=== PATIENT | male | born 1970 | race Two or more races ===

== ENCOUNTER 2021-09-23 12:25 | Inpatient (IN) | payer SELFPAY ==
[~2021-09-23] VITALS: Ht 172.7 cm; Wt 110.6 kg
[2021-09-23] MEDS ORDERED: NITROGLYCERIN 0.4 MG SL TAB SL ONE (12:45)
[2021-09-23] MEDS ORDERED: ASPirin 81 mg TAB PO ONE (12:45)
[2021-09-23 13:20] LABS: Basophils # (auto) 0.1 10 ^3/uL (0-0.2); Basophils % (auto) 0.9 % (0.0-2.0); Eosinophils # (auto) 0.1 10 ^3/uL (0-0.8); Eosinophils % (auto) 0.7 % (0.0-7.0); Lymphocytes # (auto) 2.4 10 ^3/uL (0.4-5.4); Lymphocytes % (auto) 22.2 % (10.0-50.0); Mean Corpuscular Hemoglobin 31.9 pg (28.0-32.0); Mean Corpuscular Hgb Conc. 35.3 g/dL (32.0-36.0); Mean Corpuscular Volume 90.5 fL (80.0-100.0); Monocytes % (auto) 9.4 % (0.0-12.0); Neutrophils # (auto) 7.2 10 ^3/uL (1.6-8.6); Neutrophils % (auto) 66.8 % (37.0-80.0); Nucleated Red Blood Cells % 0.1 %; Red Blood Cells 5.31 10^6/uL (4.5-5.90); Red Cell Distribution Width 12.8 % (11.8-14.3); White Blood Cell 10.7 10^3/uL (4.4-10.8)
[2021-09-23 14:44] LABS: Albumin 3.9 g/dL (3.4-5.0); Calcium 9.1 mg/dL (8.5-10.1); Potassium 3.8 mmol/L (3.5-5.1)
[2021-09-23 14:46] LABS: BUN/Creatinine Ratio 12.7
[2021-09-23 14:47] LABS: Bilirubin, Total 0.9 mg/dL (0.2-1.0); Total Protein 7.6 g/dL (6.4-8.2)
[2021-09-23] MEDS: SODIUM CHLORIDE 0.9% 1,000 ML IV SCH (16:30)
[2021-09-23] MEDS ORDERED: hydrALAZINE HCL 20 MG/ML VL IV PRN (16:30)
[2021-09-23] MEDS ORDERED: MORPHINE SULFATE INJECTION 2 MG/ML SYRG IV PRN ×3 (16:30)
[2021-09-23] MEDS ORDERED: ATORVASTATIN 20 MG TAB PO ONE (16:30)
[2021-09-23] MEDS ORDERED: METOPROLOL SUCCINATE XL 50 MG TAB PO ONE (16:30)
[2021-09-23] MEDS ORDERED: ALUM & MAG HYDROX-SIMETH LIQ(MAALOX) 30 ML PO PRN (16:30)
[2021-09-23] MEDS ORDERED: LORazepam 0.5 MG TAB PO PRN (16:30)
[2021-09-23] MEDS ORDERED: ACETAMINOPHEN 325 MG TAB PO PRN (16:30)
[2021-09-23] MEDS ORDERED: ONDANSETRON HCL 4 MG/2 ML VIAL IV PRN (16:30)
[2021-09-23] MEDS ORDERED: DOCUSATE SOD 100 MG CAP PO PRN (16:30)
[2021-09-23] MEDS ORDERED: NITROGLYCERIN 0.4 MG SL TAB SL PRN ×2 (16:30)
[2021-09-23] MEDS ORDERED: BENAZEPRIL HCL 10 MG TAB PO ONE (16:30)
[2021-09-23] MEDS ORDERED: HYDROcodone-ACET 5/325MG TAB PO PRN (16:30)
[2021-09-23] MEDS ORDERED: FAMOTIDINE (10MG/ML) 2ML VL IV ONE (16:30)
[2021-09-23 18:57] LABS: Amphetamine Screen, Urine NEGATIVE (NEGATIVE); Barbiturate Scree,Urine NEGATIVE (NEGATIVE); Benzodiazephine Screen, Urine NEGATIVE (NEGATIVE); Cannabinoid Screen, Urine NEGATIVE (NEGATIVE); Cocaine Screen, Urine NEGATIVE (NEGATIVE); Opiate Scree,Urine NEGATIVE (NEGATIVE); Phencyclidine Screen, Urine NEGATIVE (NEGATIVE)
[2021-09-23 19:02] LABS: Urine Bacteria NONE SEEN /hpf (None Seen); Urine Blood 3+ /uL (Negative); Urine Mucus FEW (None Seen); Urine Specific Gravity 1.036 (1.001-1.035); Urine WBC 1 /hpf (0 - 3)
[2021-09-23] MEDS ORDERED: ENOXAPARIN SOD 100 MG/1 ML SYRINGE SC ONE (20:00)
[2021-09-23] MEDS: ENOXAPARIN SOD 100 MG/1 ML SYRINGE SC SCH (21:06)
[2021-09-23] MEDS: FAMOTIDINE (10MG/ML) 2ML VL IV SCH (22:43)
[2021-09-24 05:03] LABS: Basophils # (auto) 0.1 10 ^3/uL (0-0.2); Eosinophils # (auto) 0.1 10 ^3/uL (0-0.8); Eosinophils % (auto) 0.7 % (0.0-7.0); Hematocrit 42.3 % (41.0-53.0); Hemoglobin 14.7 g/dL (13.5-17.5); Lymphocytes # (auto) 3.4 10 ^3/uL (0.4-5.4); Lymphocytes % (auto) 29.4 % (10.0-50.0); Mean Corpuscular Hemoglobin 31.5 pg (28.0-32.0); Mean Corpuscular Hgb Conc. 34.8 g/dL (32.0-36.0); Mean Corpuscular Volume 90.5 fL (80.0-100.0); Monocytes # (auto) 1.4 10 ^3/uL (0-1.3); Monocytes % (auto) 12.6 % (0.0-12.0); Neutrophils # (auto) 6.4 10 ^3/uL (1.6-8.6); Neutrophils % (auto) 56.3 % (37.0-80.0); Nucleated Red Blood Cells % 0.3 %; Red Blood Cells 4.67 10^6/uL (4.5-5.90); Red Cell Distribution Width 12.9 % (11.8-14.3); White Blood Cell 11.4 10^3/uL (4.4-10.8)
[2021-09-24 05:26] LABS: Albumin 3.1 g/dL (3.4-5.0); Calcium 8.3 mg/dL (8.5-10.1); INR 1.07 (0.9-1.15); Magnesium 2.1 mg/dL (1.6-2.6); Partial Thromboplastin Time 29.7 sec (23.6-33.0); Potassium 3.2 mmol/L (3.5-5.1); Uric Acid 6.9 mg/dL (3.5-7.2)
[2021-09-24 05:30] LABS: BUN/Creatinine Ratio 17.9; Bilirubin, Total 1.1 mg/dL (0.2-1.0); Phosphorus 3.2 mg/dL (2.5-4.90); Total Protein 6.3 g/dL (6.4-8.2)
[2021-09-24] MEDS: ENOXAPARIN SOD 100 MG/1 ML SYRINGE SC SCH ×2 (07:58→19:37)
[2021-09-24] MEDS: METOPROLOL SUCCINATE XL 50 MG TAB PO SCH (08:59)
[2021-09-24] MEDS: ASPirin 81 mg TAB PO SCH (08:59)
[2021-09-24] MEDS: FAMOTIDINE (10MG/ML) 2ML VL IV SCH ×2 (08:59→21:03)
[2021-09-24] MEDS: BENAZEPRIL HCL 10 MG TAB PO SCH (08:59)
[2021-09-24] MEDS: SODIUM CHLORIDE 0.9% 1,000 ML IV SCH (09:28)
[2021-09-24] MEDS ORDERED: CHOLECALCIFEROL (VITD3) 2,000 UNIT CAP/TAB PO ONE (11:45)
[2021-09-24] MEDS ORDERED: POTASSIUM CHLORIDE 40 MEQ, LIDOCAINE 1% (LOCAL ANESTH.) 4 ML in SODIUM CHL 0.9% 250 ML IV ONE (11:45)
[2021-09-24] MEDS ORDERED: LORazepam 2MG/ML-1ML VIAL IV PRN (11:45)
[2021-09-24] MEDS ORDERED: THIAMINE 100mg/ml INJ (200mg/2ml VIAL) IV ONE (12:15)
[2021-09-24] MEDS ORDERED: FOLIC ACID 1 MG TAB PO ONE (12:15)
[2021-09-24] MEDS ORDERED: MULTIPLE VITAMINS W/ MINERALS TAB PO ONE (12:15)
[2021-09-24 17:00] VITALS: BP 125/82
[2021-09-24] MEDS: POTASSIUM CHL 20 Meq TABLET PO SCH (21:04)
[2021-09-24] MEDS: ATORVASTATIN 20 MG TAB PO SCH (21:04)
[2021-09-24 23:35] VITALS: BP 123/70
[2021-09-25] MEDS: SODIUM CHLORIDE 0.9% 1,000 ML IV SCH ×2 (04:21→23:22)
[2021-09-25 05:20] LABS: Basophils # (auto) 0.1 10 ^3/uL (0-0.2); Basophils % (auto) 1.2 % (0.0-2.0); Eosinophils # (auto) 0.1 10 ^3/uL (0-0.8); Eosinophils % (auto) 0.8 % (0.0-7.0); Hemoglobin 14.8 g/dL (13.5-17.5); Lymphocytes # (auto) 2.5 10 ^3/uL (0.4-5.4); Lymphocytes % (auto) 20.2 % (10.0-50.0); Mean Corpuscular Hgb Conc. 35.2 g/dL (32.0-36.0); Mean Corpuscular Volume 90.7 fL (80.0-100.0); Monocytes # (auto) 1.4 10 ^3/uL (0-1.3); Monocytes % (auto) 11.6 % (0.0-12.0); Neutrophils # (auto) 8.2 10 ^3/uL (1.6-8.6); Neutrophils % (auto) 66.2 % (37.0-80.0); Nucleated Red Blood Cells % 0.1 %; Red Blood Cells 4.63 10^6/uL (4.5-5.90); Red Cell Distribution Width 13.1 % (11.8-14.3); White Blood Cell 12.5 10^3/uL (4.4-10.8)
[2021-09-25 05:25] VITALS: BP 149/86
[2021-09-25 05:35] LABS: INR 1.05 (0.9-1.15); Partial Thromboplastin Time 28.3 sec (23.6-33.0)
[2021-09-25] MEDS: ENOXAPARIN SOD 100 MG/1 ML SYRINGE SC SCH ×2 (07:58→19:30)
[2021-09-25 08:46] VITALS: BP 169/87
[2021-09-25 09:08] LABS: Albumin 3.2 g/dL (3.4-5.0); Calcium 8.2 mg/dL (8.5-10.1); Magnesium 2.7 mg/dL (1.6-2.6); Potassium 4.2 mmol/L (3.5-5.1)
[2021-09-25 09:11] LABS: BUN/Creatinine Ratio 15.8; Bilirubin, Total 1.1 mg/dL (0.2-1.0); Phosphorus 2.8 mg/dL (2.5-4.90); Total Protein 6.3 g/dL (6.4-8.2)
[2021-09-25] MEDS: ASPirin 81 mg TAB PO SCH (10:26)
[2021-09-25] MEDS: FAMOTIDINE (10MG/ML) 2ML VL IV SCH ×2 (10:26→22:12)
[2021-09-25] MEDS: FOLIC ACID 1 MG TAB PO SCH (10:27)
[2021-09-25] MEDS: THIAMINE HCL 100 MG TAB PO SCH (10:27)
[2021-09-25] MEDS: MULTIPLE VITAMINS W/ MINERALS TAB PO SCH (10:27)
[2021-09-25] MEDS: POTASSIUM CHL 20 Meq TABLET PO SCH ×2 (10:27→22:13)
[2021-09-25] MEDS: METOPROLOL SUCCINATE XL 50 MG TAB PO SCH (10:28)
[2021-09-25] MEDS: BENAZEPRIL HCL 10 MG TAB PO SCH (10:28)
[2021-09-25] MEDS: CHOLECALCIFEROL (VITD3) 2,000 UNIT CAP/TAB PO SCH (10:29)
[2021-09-25 12:30] VITALS: BP 141/74
[2021-09-25 17:03] VITALS: BP 144/81
[2021-09-25] MEDS: ATORVASTATIN 20 MG TAB PO SCH (21:20)
[2021-09-25 22:00] VITALS: BP 145/78
[2021-09-26 05:59] VITALS: BP 112/85
[2021-09-26 07:56] LABS: Potassium 4.2 mmol/L (3.5-5.1)
[2021-09-26 07:57] LABS: Basophils # (auto) 0.1 10 ^3/uL (0-0.2); Basophils % (auto) 0.5 % (0.0-2.0); Eosinophils # (auto) 0 10 ^3/uL (0-0.8); Eosinophils % (auto) 0.1 % (0.0-7.0); Hematocrit 42.9 % (41.0-53.0); Lymphocytes # (auto) 2.2 10 ^3/uL (0.4-5.4); Lymphocytes % (auto) 12.4 % (10.0-50.0); Mean Corpuscular Hemoglobin 32.5 pg (28.0-32.0); Mean Corpuscular Volume 92.8 fL (80.0-100.0); Monocytes # (auto) 1.4 10 ^3/uL (0-1.3); Monocytes % (auto) 8.1 % (0.0-12.0); Neutrophils # (auto) 13.9 10 ^3/uL (1.6-8.6); Neutrophils % (auto) 78.9 % (37.0-80.0); Red Blood Cells 4.62 10^6/uL (4.5-5.90); Red Cell Distribution Width 12.9 % (11.8-14.3); White Blood Cell 17.6 10^3/uL (4.4-10.8)
[2021-09-26 08:07] LABS: INR 1.16 (0.9-1.15)
[2021-09-26 08:10] LABS: Albumin 2.9 g/dL (3.4-5.0); BUN/Creatinine Ratio 15.3; Calcium 8.3 mg/dL (8.5-10.1)
[2021-09-26 08:15] LABS: Bilirubin, Total 1.6 mg/dL (0.2-1.0); Phosphorus 3.7 mg/dL (2.5-4.90); Total Protein 5.8 g/dL (6.4-8.2)
[2021-09-26 09:00] VITALS: BP 152/80
[2021-09-26] MEDS: FAMOTIDINE (10MG/ML) 2ML VL IV SCH (10:01)
[2021-09-26] MEDS: THIAMINE HCL 100 MG TAB PO SCH (10:01)
[2021-09-26] MEDS: FOLIC ACID 1 MG TAB PO SCH (10:01)
[2021-09-26] MEDS: ASPirin 81 mg TAB PO SCH (10:01)
[2021-09-26] MEDS: MULTIPLE VITAMINS W/ MINERALS TAB PO SCH (10:02)
[2021-09-26] MEDS: CHOLECALCIFEROL (VITD3) 2,000 UNIT CAP/TAB PO SCH (10:02)
[2021-09-26] MEDS: BENAZEPRIL HCL 10 MG TAB PO SCH (10:02)
[2021-09-26] MEDS: METOPROLOL SUCCINATE XL 50 MG TAB PO SCH (10:03)
[2021-09-26 13:00] VITALS: BP 134/81
[2021-09-26] MEDS ORDERED: ENOXAPARIN SOD 100 MG/1 ML SYRINGE SC ONE (13:30)
[2021-09-26 14:58] LABS: Hepatitis A Ab IgM Negative
[2021-09-26 15:10] LABS: Hepatitis B Core IgM Negative
[2021-09-26 15:14] LABS: Hepatitis C Antibody Negative (Negative)
[2021-09-26 15:38] LABS: Cholesterol 121 mg/dL (< 200); HDL Cholesterol 30 mg/dL (40-59); Triglycerides 120 mg/dL (< 150)
[2021-09-26 15:39] LABS: CRP High Sensitivity > 0.950 mg/dL (< 0.3); LDL Cholesterol 75 mg/dL (< 100)
[2021-09-26] MEDS ORDERED: ENOXAPARIN SOD 100 MG/1 ML SYRINGE SC SCH (22:00)
== END 2021-09-26 13:20 | disposition left against medical advice (07) | DRG 280 ==
LOC: ER 12:25 → TELE 16:23 → TELE-WESTW 09-24 16:46
PROVIDERS: ADMIT Hospitalist; ATTEND Internal Medicine
DX: I21.4 Non-ST elevation (NSTEMI) myocardial infarction (principal); I50.33 Acute on chronic diastolic (congestive) heart failure; R65.10 Systemic inflammatory response syndrome (SIRS) of non-infectious origin without acute organ dysfunction; I16.0 Hypertensive urgency; E66.01 Morbid (severe) obesity due to excess calories; K21.9 Gastro-esophageal reflux disease without esophagitis; K29.70 Gastritis, unspecified, without bleeding; D72.829 Elevated white blood cell count, unspecified; E87.6 Hypokalemia; E55.9 Vitamin D deficiency, unspecified; E78.5 Hyperlipidemia, unspecified; I11.0 Hypertensive heart disease with heart failure; K70.9 Alcoholic liver disease, unspecified; R79.89 Other specified abnormal findings of blood chemistry; Z20.822 Contact with and (suspected) exposure to COVID-19; R74.01 Elevation of levels of liver transaminase levels; Z53.29 Procedure and treatment not carried out because of patient's decision for other reasons; I25.10 Atherosclerotic heart disease of native coronary artery without angina pectoris; Z68.37 Body mass index [BMI] 37.0-37.9, adult; Z82.49 Family history of ischemic heart disease and other diseases of the circulatory system
CPT/HCPCS: 36415; 80053; 80061; 80074; 80307; 81001; 82306; 83036; 83735; 83880; 84100; 84443; 84484; 84550; 85025; 85610; 85730; 86141; 87040; 87086; 87426; 93005; 93306; 96365; G0378; J2001; J2405; J3490